=== PATIENT | female | born 1990 | race Caucasian/White ===

== ENCOUNTER 2017-03-04 11:34 | Emergency (ER) | payer BC ==
[2017-03-04 11:48] VITALS: BP 128/76
--- NOTE | 2017-03-04 12:23 | EDM.PDOC ---
[id number]: 71/2 WEEKS PREG BLEEDING Time Seen by Provider: 03/04/17 12:00 Source of Information: Reports: Patient, Family History Limitations: Reports: No Limitations - History of Present Illness INITIAL COMMENTS - FREE TEXT/NARRATIVE: 27-year-old 2 para 0 patient who is 7/2 weeks gestation just had an ultrasound 2 days ago because of bleeding, she still had a viable despite a subchorionic hemorrhage which appeared to be stabilizing. Today however the bleeding has become heavier and she is very concerned. No significant cramping. No trauma, fevers or chills. 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 - Infectious Disease History Infectious Disease History: Reports: Chicken Pox Social & Family History - Tobacco Use Smoking Status *Q: Never Smoker - Caffeine Use Caffeine Use: Reports: None - Recreational Drug Use Recreational Drug Use: No ED ROS GENERAL - Review of Systems Review Of Systems: See Below Constitutional: Denies: Fever, Chills, Malaise Respiratory: Denies: Shortness of Breath Cardiovascular: Denies: Chest Pain GI/Abdominal: Reports: Abdominal Pain (Slight intermittent pelvic pressure) : Reports: No Symptoms Skin: Reports: No Symptoms ED EXAM - Physical Exam Exam: See Below Exam Limited By: No Limitations General Appearance: Alert, No Apparent Distress Respiratory/Chest: No Respiratory Distress GI/Abdominal Exam: Soft, Non-Tender Heart Tones: Not Dougherty (Attempted to hear heart tones with Doppler but none found) Neurological: Alert, Oriented Psychiatric: Normal Affect, Normal Mood Skin Exam: Warm, Dry Course - Vital Signs Last Recorded V/S: Last Vital Signs Temp 97.2 F 03/04/17 11:51 Pulse 89 03/04/17 11:51 Resp 16 03/04/17 11:51 BP 128/76 03/04/17 11:51 Pulse Ox 100 03/04/17 11:51 - Orders/Labs/Meds Orders: Active Orders 24 hr Category Date Time Status OB 1st Tri Ea Addl Gest [US] Stat Exams 03/04/17 12:18 Taken - Re-Assessments/Exams Free Text/Narrative Re-Assessment/Exam: 03/04/17 12:23 Ultrasound was asked to come in and see the patient for a first trimester ultrasound to assess viability of the . 03/04/17 13:00 Ultrasound confirms still a viable , dating is still on target. Heart tones were 154. Patient was encouraged to stay at rest until bleeding stops and can recheck if worsening. Departure - Departure Time of Disposition: 13:21 Disposition: Home, Self-Care 01 Condition: Good Clinical Impression: Threatened - Discharge Information Instructions: Threatened Miscarriage, [id number] Referrals: Devora Joaquin CNM [Primary Care Provider] - Forms: ED Department Discharge Care Plan Goals: Rest the next few days until bleeding slows down. Call or return if worsening or concerns. - My Orders Last 24 Hours: My Active Orders 03/04/17 12:18 OB 1st Tri Ea Addl Gest [US] Stat - Assessment/Plan Last 24 Hours: My Active Orders 03/04/17 12:18 OB 1st Tri Ea Addl Gest [US] Stat
--- NOTE | 2017-03-08 12:59 | US ---
OB ultrasound. Comparison: 03/02/2017. This presents for dictation 03/08/2017. Findings: Uterus measures 8.5 x 5.1 x 8.5 cm. Ovaries are unremarkable. There is a pole at 12 mm. This correlates to gestational age of 7 weeks 3 days. heart rate 153 bpm. Yolk sac is evid ent. Decreased sized of the hypoechoic mass adjacent to the gestational sac now measuring 2 x 4.3 x 2.8 cm. Prior was 3.7 x 6.2 x 3.4 cm. Per patient large clot was seen. Impression: 1. Single live intrauterine at 7 weeks 3 days gestation. 2. Decreased in size mass adjacent to the gestational sac suggestive of a decrease in size subchorio kuldip hematoma. Recommend continued ultrasound follow-up.
== END 2017-03-04 13:22 | disposition home or self-care (01) ==
LOC: JP.ED 11:34
DX: O20.0 Threatened abortion (principal); Z3A.01 Less than 8 weeks gestation of pregnancy
CPT/HCPCS: 76801; 76802; 76802-26; 99284-25

== ENCOUNTER 2020-07-25 09:58 | Emergency (ER) | payer BC ==
[2020-07-25 10:18] VITALS: BP 126/77; PULSE 86
--- NOTE | 2020-07-25 10:37 | EDM.PDOC ---
ED HPI GENERAL MEDICAL PROBLEM - General Chief Complaint: Back Pain or Injury Stated Complaint: SLIPPED ON ICE, HURT RIBS RIGHT BACK Time Seen by Provider: 07/25/20 10:15 Source of Information: Reports: Patient History Limitations: Reports: No Limitations - History of Present Illness INITIAL COMMENTS - FREE TEXT/NARRATIVE: 30-year-old female slipped on the ice yesterday striking the ground in a concrete parking divider with her right lower chest. Today it is bruised and very painful, hurts to breathe but she is not short of breath. She is eating and drinking without difficulty. No significant abdominal discomfort but some "spasm-like" pain in the right upper quadrant intermittent. She is generally healthy. Onset: Sudden (Fell 24 hours ago) Location: Reports: Chest (Right chest) Improves with: Reports: None (Ibuprofen really is not helping much) Worsens with: Reports: Breathing, Movement Associated Symptoms: Reports: Chest Pain, Other (Marked pleuritic pain with breathing). 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 , Other (See Below) Other CLINICAL PSYCHOLOGY PROFESSOR History: current fertility treatments - Infectious Disease History Infectious Disease History: Reports: Chicken Pox - Past Surgical History Female Surgical History: Reports: Salpingo-Oophorectomy Social & Family History - Family History Family Medical History: No Pertinent Family History - Tobacco Use Tobacco Use Status *Q: Never Tobacco User - Caffeine Use Caffeine Use: Reports: Coffee - Recreational Drug Use Recreational Drug Use: No ED ROS GENERAL - Review of Systems Review Of Systems: See Below Constitutional: Denies: Fever, Chills HEENT: Reports: No Symptoms Respiratory: Reports: Pleuritic Chest Pain. Denies: Cough Cardiovascular: Reports: Chest Pain GI/Abdominal: Reports: Abdominal Pain (Some vague intermittent right upper abdominal spasm, cramp) Skin: Reports: Bruising (She has developed some bruising over the right lateral chest) Neurological: Reports: No Symptoms ED EXAM, GENERAL - Physical Exam Exam: See Below Exam Limited By: No Limitations General Appearance: Alert, No Apparent Distress (Looks uncomfortable but not distressed) Head: Atraumatic Respiratory/Chest: No Respiratory Distress, Lungs Clear, Other (Exquisite tenderness to palpation over the right lateral chest wall with overlying bruising present) GI/Abdominal: Soft, Tender (Does react with some vague discomfort in the right upper quadrant, no focal guarding or rebound) Neurological: Alert, Oriented Skin Exam: Other (2 separate bruises that developed over the right lower lateral chest where she sustained the initial injury) Course - Vital Signs Last Recorded V/S: Last Vital Signs Temp 98.6 F 07/25/20 10:13 Pulse 86 07/25/20 10:13 Resp 14 07/25/20 10:13 BP 126/77 07/25/20 10:13 Pulse Ox 97 07/25/20 10:13 - Orders/Labs/Meds Orders: Active Orders 24 hr Category Date Time Status Chest 2V [CR] Routine Exams 07/25/20 10:30 Taken - Re-Assessments/Exams Free Text/Narrative Re-Assessment/Exam: 07/25/20 10:37 A 2 view chest x-ray was obtained. 07/25/20 10:55 2 view chest x-ray is completely normal, no fracture seen. Discussed progressing onto a CT scan to rule out a subtle fracture but the patient decided to just treat pain for the next couple of days and will return if worsening such as increased shortness of breath, pain, or increased abdominal pain or change in urine color. She will be given 10 hydrocodone for extra pain control. Departure - Departure Time of Disposition: 11:09 Disposition: Home, Self-Care 01 Clinical Impression: Contusion of right chest wall - Discharge Information Instructions: Contusion, [id number] Referrals: Dulce French, RESEARCH COORDINATOR [Primary Care Provider] - Forms: ED Department Discharge Care Plan Goals: Continue with ibuprofen and ice to the sore area, increase activity as tolerated and use hydrocodone for extra pain control if needed. Return right away if increasing shortness of breath, dark urine, or uncontrolled pain. Otherwise consider rechecking in 5 to 7 days if not improving satisfactorily. Sepsis Event Note (ED) - Evaluation Sepsis Screening Result: No Definite Risk - Focused Exam Vital Signs: Vital Signs Temp Pulse Resp BP Pulse Ox 07/25/20 10:13 98.6 F 86 14 126/77 97 - My Orders Last 24 Hours: My Active Orders 07/25/20 10:30 Chest 2V [CR] Routine - Assessment/Plan Last 24 Hours: My Active Orders 07/25/20 10:30 Chest 2V [CR] Routine
--- NOTE | 2020-07-26 10:13 | CR ---
CHEST: 2 view CLINICAL HISTORY:Right lower chest pain, fall COMPARISON:None FINDINGS: The heart size, pulmonary vascularity and hilar structures are normal. No infiltrate effusion or pneumothorax is seen. IMPRESSION: No acute cardiopulmonary process. Evaluation of the ribs is limited due to technique. No obvious fracture seen
== END 2020-07-25 11:09 | disposition home or self-care (01) ==
LOC: JP.ED 09:58
DX: S20.211A Contusion of right front wall of thorax, initial encounter (principal); R10.11 Right upper quadrant pain; W00.0XXA Fall on same level due to ice and snow, initial encounter
CPT/HCPCS: 71046; 71046-26; 99283-25

== ENCOUNTER 2022-07-13 11:45 | Emergency (ER) | payer BC ==
[2022-07-13 11:57] VITALS: BP 118/70; PULSE 107
[2022-07-13] MEDS ORDERED: Albuterol/Ipratropium 3.0-0.5 MG/3 ML Neb Soln NEB ONE (11:58)
== END 2022-07-13 12:50 | disposition home or self-care (01) ==
LOC: JP.ED 11:45
DX: O99.513 Diseases of the respiratory system complicating pregnancy, third trimester (principal); J45.909 Unspecified asthma, uncomplicated; R09.1 Pleurisy; J10.1 Influenza due to other identified influenza virus with other respiratory manifestations; Z3A.32 32 weeks gestation of pregnancy; Z79.899 Other long term (current) drug therapy
CPT/HCPCS: 94640; 99283; J7620